=== PATIENT | male | born 1980 | race Caucasian/White ===

== ENCOUNTER 2020-11-07 08:00 | Emergency (ER) | payer OTHER, SELFPAY ==
[2020-11-07 08:08] VITALS: BP 147/98; PULSE 86; RESP 16; TEMP 36.3; O2SAT 99
--- NOTE | 2020-11-07 08:54 | ED.BACK ---
HPI - Back Pain/Injury General Chief Complaint: Back Pain/Injury Stated Complaint: back pain Time Seen by Provider: 11/07/20 08:34 Source: patient Mode of arrival: ambulatory Limitations: no limitations History of Present Illness HPI Narrative: 40 years old white male presents with lower back pain started 4 days ago after bending over to put his shoes on. Patient denies radiation of pain, bowel dysfunction, bladder dysfunction, altered sensation, focal weakness, or saddle numbness, Patient denies any fever, chills, nausea, vomiting, COVID-19 exposure. Related Data Home Medications Medication Instructions Recorded Confirmed No Home Medications 11/07/20 11/07/20 Allergies Allergy/AdvReac Type Severity Reaction Status Date / Time Penicillins Allergy Unknown Verified 11/07/20 08:08 Sulfa (Sulfonamide Allergy Unknown Verified 11/07/20 08:08 Antibiotics) Review of Systems Review of Systems: Narrative: CONSTITUTIONAL: Denies fever, chills, or sweats. EYES: Denies visual changes, redness, or discharge. ENT: Denies rhinorrhea, congestion, sore throat, or otalgia. CARDIOVASCULAR: Denies chest pain, palpitations, or edema. RESPIRATORY: Denies cough or dyspnea. GASTROINTESTINAL: Denies abdominal pain, nausea, vomiting, or diarrhea. GENITOURINARY: Denies dysuria or hematuria. SKIN: Denies rash or itching. MUSCULOSKELETAL: Lower back pain NEUROLOGIC: Denies headache, numbness, or weakness. PSYCHIATRIC: Denies anxiety or depression. PMFSH Social History Social History Alcohol intake: current Gender identity (if verbalized by the patient): Male Exam Narrative: Exam Narrative: General appearance: Well-developed, well-nourished, patient sitting in bed comfortable, not in any pain or distress no family member at the bedside Skin: Normal color Head: Normocephalic, nontraumatic Eyes: Clear conjunctiva ENT: Oropharynx normal, ears normal, nose normal Neck: Supple, nontender Chest and respiratory: Airway patent, no respiratory distress, no accessory muscle use Heart: Regular rate/rhythm Abdomen: Soft, nontender, no organomegaly, quiet bowel sounds Vascular: Normal peripheral pulses, normal capillary refill. Musculoskeletal: Limited range of motion at the lumbar area., Mild diffuse tenderness with deep palpation, no bruises, no rash or swelling Neurologic: Alert and oriented ?3, [employer] [employer] is normal as tested, no gross motor deficit, negative straight leg raising test Course Course Emergency Course: Improving Reevaluation(s) Reevaluation #1: The nurses telling me that patient eloped from the emergency room before getting any medications IV. The discharge instructions and the prescription were ready to go. Patient did not receive any one of them and eloped Vital Signs Vital signs: Vital Signs Temperature 36.3 C L 11/07/20 08:08 Pulse Rate 86 11/07/20 08:08 Respiratory Rate 16 11/07/20 08:08 Blood Pressure 147/98 H 11/07/20 08:08 Pulse Oximetry 99 11/07/20 08:08 Temperature 36.3 C L 11/07/20 08:08 Pulse Rate 86 11/07/20 08:08 Respiratory Rate 16 11/07/20 08:08 Blood Pressure 147/98 H 11/07/20 08:08 Pulse Oximetry 99 11/07/20 08:08 MDM - Back Pain/Injury MDM Narrative Medical decision making narrative: Patient had chronic lower back pain started 4 years ago after sporting injury. With intermittent flareup of lower back pain. Lower back muscular strain/sprain is my concern. No imaging or blood work-up is required at this time. IV Dilaudid, Toradol, Valium ordered. Further plan to follow Critical Care Time Critical Care Time Critical Care Time: Yes Total Cri
--- NOTE | 2020-11-07 09:10 | PC.NURSE ---
In to explain procedure and initiate IV. Medications explained, and pt is refusing dilaudid. Explained will need a ride due to the medications he will be receiving. First IV unsuccessful. Setting up to attempt 2nd IV, pt becomes tearful, states I need a minute . Apologized for missing the IV, states no, it's not you guys. I think I'm going to pass on the valium too . Pt continues to be tearful. States is still wanting the anti-inflammatory. Offered the medication in a shot. Pt continues to be tearful, states I just need a minute .
--- NOTE | 2020-11-07 09:25 | PC.NURSE ---
Pt noted to be dressed and walking out of facility. When asked if patient wants to want his shot, pt refuses. Offered d/c instructions and prescriptions, and pt refuses, states I think it will just take time . Pt ambulatory out of department without papers or prescriptions. Dr. Smith made aware.
== END 2020-11-07 09:25 | disposition left against medical advice (07) ==
PROVIDERS: Emergency Provider Emergency Medicine; PCP Family Medicine Adolescent Medicine
DX: S39.012A Strain of muscle, fascia and tendon of lower back, initial encounter (principal); X50.0XXA Overexertion from strenuous movement or load, initial encounter
CPT/HCPCS: 99283

== ENCOUNTER → 2020-11-08 10:13 | Outpatient (CLI) | payer OTHER, SELFPAY ==
--- NOTE | ~2020-11-08 | XR_ITS ---
XR lumbar spine 2-3V 11/08/2020 11:11 Indication: Low back pain Procedure: 3 views lumbar spine Comparison: No prior studies for comparison. Findings: There is grade 1 spondylolisthesis at L5-S1 secondary to spondylolysis. There is mild disc narrowing at multiple levels. Pedicles intact. Vertebral body heights are preserved. Sacral foramen a re symmetric. Impression: 1: Mild-moderate lumbar spondylosis with grade 1 spondylolisthesis at L5-S1. Reviewed, dictated and finalized at location A. [facility]ER Impression: 1: Mild-moderate lumbar spondylosis with grade 1 spondylolisthesis at L5-S1.
== END ==
PROVIDERS: PCP Family Medicine Adolescent Medicine; Visit Provider Physician Assistant
DX: M47.896 Other spondylosis, lumbar region (principal)
CPT/HCPCS: 72100

== ENCOUNTER → 2023-08-28 14:53 | Outpatient (CLI) | payer OTHER, SELFPAY ==
--- NOTE | ~2023-08-28 | XR_ITS ---
XR lumbar spine 2-3V DATE: 08/28/2023 15:34 INDICATION: Deforming dorsopathy TECHNIQUE: AP, lateral and coned lateral lumbosacral standing views COMPARISON: 11/08/2020 lumbar spine FINDINGS: There is mild lumbar dextroscoliosis. Included lower thoracic and lumbar pedicles are intac t. 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 Multilevel mild to moderate degenerative disc disease. There is associated minimal retrolisthesis at L4-5. The sacroiliac joints are intact. IMPRESSION: No significant change since 11/08/2020 Reviewed, dictated and finalized at location B.
== END ==
PROVIDERS: PCP Nurse Practitioner Family; Visit Provider Nurse Practitioner Family
DX: M43.9 Deforming dorsopathy, unspecified (principal); M54.9 Dorsalgia, unspecified
CPT/HCPCS: 72100